=== PATIENT | male | born 1970 | race Caucasian/White ===

== ENCOUNTER 2017-05-29 15:49 | Emergency (ER) | payer BC ==
[2017-05-29 16:04] VITALS: BP 112/75
[2017-05-29] MEDS ORDERED: LIDOCAINE 1% / SOD BICARB 8.4% 20 ML VIAL. IJ ONE (16:15)
[2017-05-29] MEDS ORDERED: DIPHTH,PERTUSS(ACELL),TET TOX 0.5 ML DISP.SYRIN. VAX IM ONE (16:15)
--- NOTE | 2017-05-29 17:02 | PHYS DOC ---
Past Medical History Past Medical History: No Pertinent History Past Surgical History: No Surgical History Alcohol Use: Rarely Drug Use: None Adult General Chief Complaint Chief Complaint: LACERATION/AVULSION HPI HPI Patient is a 46 year old male who presents with right thumb laceration. Patient is left-handed. He was cut with a blade cutting a screen Review of Systems Review of Systems Constitutional: Denies fever or chills [] Eyes: Denies change in visual acuity, redness, or eye pain [] HENT: Denies nasal congestion or sore throat [] Musculoskeletal: Denies back pain or joint pain [] Integument: Right thumb laceration Neurologic: Denies headache, focal weakness or sensory changes [] Endocrine: Denies polyuria or polydipsia [] Current Medications Current Medications Current Medications Medications (Trade) Dose Ordered Sig/Nohemi Start Time Stop Time Status Last Admin Dose Admin Diphtheria/ Tetanus/Acell Pertussis (Boostrix) 0.5 ml ONCE ONCE 05/29/17 16:15 05/29/17 16:16 DC 05/29/17 16:28 0.5 ML Lidocaine/Sodium Bicarbonate (Buffered Lidocaine 1%) 20 ml 1X ONCE 05/29/17 16:15 05/29/17 16:16 DC 05/29/17 16:24 20 ML Allergies Allergies Allergies Coded Allergies Type Severity Reaction Last Updated Verified No Known Drug Allergies 05/29/17 No Physical Exam Physical Exam Constitutional: Well developed, well nourished, no acute distress, non-toxic appearance. [] HENT: Normocephalic, atraumatic, bilateral external ears normal, oropharynx moist, no oral exudates, nose normal. [] Eyes: PERRLA, EOMI, conjunctiva normal, no discharge. [] Skin: Right dorsal thumb along the middle phalanx with a laceration approximately 3 cm long. There is no obvious tendon involvement. Adequate flexion and extension of the right thumb. +2 right radial pulse. Adequate radial sensation to the right thumb. Cap refill less than 2 seconds the right thumb. Back: No tenderness, no CVA tenderness. [] Extremities: No tenderness, no cyanosis, no clubbing, ROM intact, no edema. [] Neurologic: Alert and oriented X 3, normal motor function, normal sensory function, no focal deficits noted. [] Psychologic: Affect normal, judgement normal, mood normal. [] Current Patient Data Vital Signs Vital Signs Date Time Temp Pulse Resp B/P (MAP) Pulse Ox O2 Delivery O2 Flow Rate FiO2 05/29/17 16:04 98.3 81 18 98 Room Air 98.3 EKG EKG [] Radiology/Procedures Radiology/Procedures Indication: [] Right thumb laceration Procedure: The patient was placed in the appropriate position and anesthesia around the laceration was 1% buffered lidocaine. The area was then cleaned with 200 ML of normal saline and. The laceration was closed with 5 interrupted sutures using 4. 0 Ethilon The wound area was then dressed with Band-Aid Total repaired wound length: Approximately 3 cm long Other Items: none The patient tolerated the procedure well Complications: none Right thumb x-rays interpreted by Dr. Meehan were negative for any acute findings Course & Med Decision Making Course & Med Decision Making Pertinent Labs and Imaging studies reviewed. (See chart for details) Patient is in the ED with right thumb laceration. Laceration was closed as noted in procedures. Provided wound care instructions as well as return precautions. Neosporin recommended to the area. Given tetanus in the ED. Dragon Disclaimer Dragon Disclaimer This electronic medical record was generated, in whole or in part, using a voice recognition dictation system. Departure Departure Impression: Primary Impression: Laceration of right thumb Disposition: 01 HOME, SELF-CARE Condition: STABLE Referrals: [facility] (PCP) Follow-up with your doctor or the emergency room in 7-10 days for stitches removal Patient Instructions: Fingertip Laceration Additional Instructions: You have right thumb laceration. Keep it clean and dry. Apply Neosporin to it twice a day. Monitor it for signs and symptoms of infection including increased redness, increased drainage, increased warmth or odor drainage from the laceration and return to the ED if they occur. Follow-up with your doctor or the emergency room in 7-10 days for suture removal Problem Qualifiers Primary Impression: Laceration of right thumb Encounter type: initial encounter Qualified Codes: S61.011A - Laceration without foreign body of right thumb without damage to nail, initial encounter EMILY HER APRN May 29, 2017 17:02
--- NOTE | 2017-05-30 08:54 | RAD ---
Right thumb, 3 views, 05/29/2017: History: Thumb laceration, injury No fracture or dislocation is identified. There is mild soft tissue deformity with gas in the soft tissues along the proximal aspect of the thumb compatible with the history of a laceration. No radiopaque foreign body is evident in the soft tissues. IMPRESSION: No acute bony abnormality is detected.
== END 2017-05-29 17:23 | disposition home or self-care (01) ==
LOC: ER 15:49
DX: S61.011A Laceration without foreign body of right thumb without damage to nail, initial encounter (principal); W45.8XXA Other foreign body or object entering through skin, initial encounter; Y93.89 Activity, other specified; Y99.8 Other external cause status; Y92.89 Other specified places as the place of occurrence of the external cause
CPT/HCPCS: 12002; 73140; 90471; 90715; 99284-25